=== PATIENT | female | born 1970 ===

== ENCOUNTER 2021-10-27 11:38 | Outpatient (CLI) | payer OTHER | END 2021-10-27 11:46 | disposition home or self-care (01) | LOC: RAD 11:38 | PROVIDERS: ATTEND Orthopaedic Surgery | DX: M25.571 Pain in right ankle and joints of right foot (principal) ==

== ENCOUNTER 2022-11-22 09:15 | Outpatient (CLI) | payer OTHER | END 2022-11-22 09:22 | disposition home or self-care (01) | LOC: RAD 09:15 | PROVIDERS: ATTEND Orthopaedic Surgery | DX: M25.511 Pain in right shoulder (principal) ==